=== PATIENT | female | born 1985 | race Caucasian/White ===

== ENCOUNTER 2023-01-15 20:55 | Emergency (ER) | payer OTHER ==
[~2023-01-15] VITALS: Ht 157.5 cm; Wt 79.4 kg
[2023-01-15 21:05] VITALS: BP 125/66; PULSE 92; RESP 17; TEMP 98.5; O2SAT 98
[2023-01-15] MEDS ORDERED: LIDOCAINE 2% 1000 MG/50 ML VIAL INJ ONE (22:45)
[2023-01-15 23:06] LABS: APPEARANCE,URINE CLEAR (CLEAR); BILIRUBIN,URINE NEGATIVE (NEGATIVE); BLOOD, URINE 1+ (NEGATIVE); COLOR,URINE YELLOW (YELLOW); LEUKOCYTE ESTERASE ,URINE NEGATIVE (NEGATIVE); NITRITE, URINE NEGATIVE (NEGATIVE); PROTEIN,URINE NEGATIVE (NEGATIVE); UGLUCOSE NEGATIVE (NEGATIVE); UROBILINOGEN,URINE 0.2 EU/dL (0.2 - 1)
[2023-01-15 23:13] LABS: BACTERIA,URINE >30 (MANY) /HPF (None Seen); MUCUS,URINE 1+ /LPF (None Seen); RBC,URINE 0-5 /HPF (0-5); SQUAMOUS EPITHELIAL CELL,UR 0-3 (FEW) /LPF (0-3 (FEW)); WBC,URINE 0-5 /HPF (0-5)
[2023-01-16] MEDS ORDERED: CEPH-588 PO (00:58)
[2023-01-16] MEDS ORDERED: CLIN300C52 PO (00:58)
[2023-01-16] MEDS ORDERED: NAPR-54 PO (00:58)
== END 2023-01-16 01:07 | disposition home or self-care (01) ==
LOC: MED 20:55
DX: N75.1 Abscess of Bartholin's gland (principal); Z79.899 Other long term (current) drug therapy
CPT/HCPCS: 56405; 81001; 81025; 87086; 99284; J2001

== ENCOUNTER 2023-01-18 13:03 | Emergency (ER) | payer OTHER ==
[~2023-01-18] VITALS: Ht 154.9 cm; Wt 80.7 kg
[~2023-01-18 13:03] MED LIST: CEPH-588 PO; CLIN300C52 PO; NAPR-54 PO
[2023-01-18 13:23] VITALS: BP 125/85; PULSE 63; RESP 20; TEMP 98.1; O2SAT 98
[2023-01-18 13:52] VITALS: BP 125/85; PULSE 63; RESP 20; TEMP 98.1; O2SAT 98
== END 2023-01-18 13:52 | disposition home or self-care (01) ==
LOC: MED 13:03
DX: Z48.01 Encounter for change or removal of surgical wound dressing (principal); Z79.1 Long term (current) use of non-steroidal anti-inflammatories (NSAID); Z79.2 Long term (current) use of antibiotics
CPT/HCPCS: 99281